=== PATIENT | female | born 1975 | race Caucasian/White ===

== ENCOUNTER 2022-04-04 09:14 | Emergency (ER) | payer MEDICAID, OTHER ==
[~2022-04-04] VITALS: Ht 157.5 cm; Wt 65.9 kg
[~2022-04-04 09:14] MED LIST: PRENATAL ONE T1 EACH
[2022-04-04] MEDS ORDERED: PERTUSS(ACELL),DIPH,TET VAC/PF 0.5 ML SYRINGE IM. ONE (09:30)
[2022-04-04] MEDS ORDERED: BACITRACIN 0.9 GM PACKET OINTMENT TP ONE (09:30)
[2022-04-04] MEDS ORDERED: LIDOCAINE 1%/EPI 1:200,000/PF 30 ML VIAL SQ ONE (09:30)
[2022-04-04 10:15] VITALS: BP 169/99
== END 2022-04-04 10:23 | disposition home or self-care (01) ==
LOC: EMS 09:16
DX: S01.81XA Laceration without foreign body of other part of head, initial encounter (principal); F10.20 Alcohol dependence, uncomplicated; F17.210 Nicotine dependence, cigarettes, uncomplicated; I10 Essential (primary) hypertension; W22.09XA Striking against other stationary object, initial encounter; Y93.89 Activity, other specified; Y92.89 Other specified places as the place of occurrence of the external cause; Y99.8 Other external cause status
CPT/HCPCS: 12013; 90471; 90715; 99283; J3490